=== PATIENT | male | born 1990 | race Caucasian/White ===

== ENCOUNTER 2022-02-22 17:31 | Emergency (ER) | payer BC ==
[~2022-02-22] VITALS: Ht 182 cm; Wt 113.0 kg
[2022-02-22 17:35] VITALS: BP 148/99
--- NOTE | 2022-02-22 17:48 | ED Lower Extremity ---
General Chief Complaint: Foreign Body Stated Complaint: FOOT INJURY Nursing Triage Note: ARRIVED VIA AMB WC TO FT2. STEPPED ON A NAIL THAT WENT THUR IS SHOE INTO HIS FOOT. NAIL IS IN HIS FOOT AT THIS MOMENT. Source: patient Exam Limitations: no limitations History of Present Illness Date Seen by Provider: Feb 22, 2022 Time Seen by Provider: 17:47 Initial Comments This is a well appearing 31 yo male who presented to the ER with c/o right foot injury. Allergies and Home Medications Allergies Coded Allergies: No Known Drug Allergies (Unverified , 02/22/22) Physical Exam Vital Signs Vital Signs - First Documented 02/22/22 17:35 Temp 36.3 Pulse 94 Resp 16 B/P (MAP) 148/99 (115) Pulse Ox 97 O2 Delivery Room Air Capillary Refill : Less Than 3 Seconds Height, Weight, BMI Height: '" Weight: lbs. oz. kg; 34.00 BMI Method: Progress/Results/Core Measures Results/Orders My Orders Orders - KAROLINA SOLANO [employer]CH[employer]ICIAN Foot, Right, 3 View (02/22/22 17:46) Dipht,Pertuss(Acell),Tet Adult (Boostrix (02/22/22 18:00) Clindamycin Capsule (Cleocin Capsule) (02/22/22 18:30) Medications Given in ED Current Medications Medications Dose Ordered Sig/Shena Route Start Time Stop Time Status Last Admin Dose Admin Diphtheria/ Tetanus/Acell Pertussis 0.5 ml ONCE ONCE IM 02/22/22 18:00 02/22/22 18:01 DC 02/22/22 17:58 0.5 ML Vital Signs/I&O 02/22/22 17:35 Temp 36.3 Pulse 94 Resp 16 B/P (MAP) 148/99 (115) Pulse Ox 97 O2 Delivery Room Air Blood Pressure Mean: 115 Departure Impression Primary Impression: Foreign body in right foot Disposition: HOME, SELF-CARE Condition: Improved Departure-Patient Inst. Decision time for Depature: 18:18 Patient Instructions: Foreign Body in Skin (DC) Add. Discharge Instructions: Plan: 1. Gently wash your foot with mild soap and water, apply clean socks. You can cover with dry bandage until puncture wound heals. 2. Take antibiotics daily as directed to help prevent infection. He will monitor closely for any increased redness, drainage, streaking up the foot, fever chills or any other symptoms please return to the ER or follow-up with your primary care provider. 3. You were given a foot block in the emergency department to be careful of walking around barefoot or with any type of foot protection as you are more susceptible to stepping on another foreign objects. I recommend going home and relax and keeping your foot up for the rest the evening. 4. You can take Tylenol ibuprofen as needed for pain per package. 5. Return to the ER for any new, concerning, worsening symptoms. All discharge instructions reviewed with patient and/or family. Voiced understanding. Scripts Clindamycin HCl (Clindamycin HCl) 150 Mg Capsule 150 MG PO BID for 7 Days, #14 CAP 0 Refills Prov: KAROLINA SOLANO APRN 02/22/22 KAROLINA SOLANO APRN Feb 22, 2022 17:48
[2022-02-22] MEDS ORDERED: TETANUS,DIPTH,PERTUSS P/F (BOOSTRIX) 0.5 ML VIAL IM ONE (18:00)
--- NOTE | 2022-02-22 18:16 | Diagnostic Imaging Report ---
EXAMINATION: Right foot 3 views. HISTORY: Nail in foot. COMPARISON: None available. FINDINGS: There is a nail in the plantar aspect of the right foot. It extends through a shoe and into the subcutaneous tissues. The depth of penetration is between 5 and 10 mm depending on the obliquity. It is not within the bone. No fracture is seen. No dislocation. IMPRESSION: 1. Nail extending through a shoe into the plantar aspect of the foot. The depth of penetration is between 5 and 10 mm depending on the obliquity. 2. No fracture. Dictated by: Dictated on workstation # [id number]
[2022-02-22] MEDS ORDERED: CLIN150C20 PO (18:23)
[2022-02-22] MEDS ORDERED: CLINDAMYCIN 150 MG (CLEOCIN) CAP PO ONE (18:30)
== END 2022-02-22 18:30 | disposition home or self-care (01) ==
LOC: ER 17:35
DX: S90.851A Superficial foreign body, right foot, initial encounter (principal); W45.0XXA Nail entering through skin, initial encounter
CPT/HCPCS: 73630; 90715